=== PATIENT | female | born 1940 | race Two or more races ===

== ENCOUNTER 2017-09-09 20:32 | Inpatient (IN) | payer MEDICARE, OTHER ==
[~2017-09-09] VITALS: Ht 160 cm; Wt 66.9 kg
[2017-09-09] MEDS ORDERED: SODIUM CHLORIDE 0.9% 1,000 ML IV ONE (21:09)
[2017-09-09] MEDS ORDERED: MECLIZINE CHEWABLE 25 MG TAB PO ONE (21:30)
[2017-09-09] MEDS ORDERED: SODIUM CHLORIDE 0.9% 1,000ML IVBOLUS ONE (21:30)
[2017-09-09] MEDS ORDERED: SODIUM CHLORIDE FLUSH 10ML SYR IVF ONE (21:30)
[2017-09-09] MEDS ORDERED: ONDANSETRON 2MG/ML, 2ML IVPush ONE (21:30)
[2017-09-09 21:35] LABS: BASOPHILS # (AUTO) 0.02 x10^3/uL (0-0.1); BASOPHILS % (AUTO) 0 % (0-1); EOSINOPHILS % (AUTO) 0 % (1-7); LYMPHOCYTES # (AUTO) 0.42 x10^3/uL (1-3.4); LYMPHOCYTES % (AUTO) 5 % (22-44); MD NO; MEAN CORPUSCULAR HEMOGLOBIN 31.5 pg (27.0-34.8); MEAN CORPUSCULAR HGB CONC 33.7 g/dL (32.4-35.8); MEAN CORPUSCULAR VOLUME 93.4 fL (80-100); MEAN PLATELET VOLUME 8.2 fL (7.4-10.4); MONOCYTES # (AUTO) 0.17 x10^3/uL (0.2-0.8); MONOCYTES % (AUTO) 2 % (2-9); NEUTROPHILS % (AUTO) 93 % (42-75); PLATELET COUNT 191 x10^3/uL (130-400); RED BLOOD COUNT 5.19 x10^6/uL (3.82-5.3); RED CELL DISTRIBUTION WIDTH 14.4 % (9.6-15.2)
[2017-09-09] MEDS ORDERED: ONDANSETRON 2MG/ML, 2ML ONE (21:36)
[2017-09-09] MEDS ORDERED: MECLIZINE CHEWABLE 25 MG TAB ONE (21:36)
[2017-09-09 21:47] LABS: ALBUMIN 3.3 g/dL (3.4-5.0); ANION GAP 7 mmol/L (5-15); CALCIUM 8.3 mg/dL (8.5-10.1); CHLORIDE 107 mmol/L (98-107)
[2017-09-09 21:53] LABS: ALANINE AMINOTRANSFERASE 19 U/L (12-78); ALKALINE PHOSPHATASE 54 U/L (45-117); BILIRUBIN,TOTAL 0.8 mg/dL (0.2-1.0); CREATININE 0.76 mg/dL (0.55-1.02); TOTAL PROTEIN 7.3 g/dL (6.4-8.2); TROPONIN I < 0.015 ng/mL (0.000-0.045)
[2017-09-09] MEDS ORDERED: IPRATROPIUM 0.5 MG/2.5 ML INHA NPPB ONE (23:00)
[2017-09-09] MEDS ORDERED: ALBUTEROL SULFATE 2.5 MG/3 ML NPPB ONE (23:00)
[2017-09-09] MEDS ORDERED: POTASSIUM CHLORIDE 40 MEQ in SODIUM CHLORIDE 0.9% 500 ML IV ONE (23:00)
[2017-09-09] MEDS ORDERED: methylPREDNISolone SOD SUCC 125 MG/2 ML IVP ONE (23:00)
[2017-09-09] MEDS ORDERED: methylPREDNISolone SOD SUCC 125 MG/2 ML ONE (23:07)
[2017-09-09 23:13] LABS: MICROSCOPIC AUTO
[2017-09-09 23:25] LABS: CULTURE INDICATED? NO
[2017-09-09] MEDS ORDERED: ZOLE4VIA INJ (23:39)
[2017-09-09] MEDS ORDERED: GABA-827 PO (23:39)
[2017-09-09] MEDS ORDERED: TIOT18CA INH (23:39)
[2017-09-09] MEDS ORDERED: HYDR25TA6 PO (23:39)
[2017-09-09] MEDS ORDERED: ALBU8.5H8 INH (23:39)
[2017-09-09] MEDS ORDERED: AMLO10TA2 PO (23:39)
[2017-09-09] MEDS ORDERED: AMIT50TA PO (23:39)
[2017-09-09] MEDS ORDERED: PRAV10TA2 PO (23:39)
[2017-09-10] MEDS ORDERED: POLYETHYLENE GLYCOL 17 GM PACKET PO PRN
[2017-09-10] MEDS ORDERED: MECLIZINE CHEWABLE 25 MG TAB PO PRN
[2017-09-10] MEDS ORDERED: ACETAMINOPHEN 325 MG TABLET PO PRN
[2017-09-10] MEDS ORDERED: DIAZEPAM 5 MG TABLET PO PRN
[2017-09-10] MEDS ORDERED: BISACODYL 10 MG SUPP PR PRN
[2017-09-10] MEDS ORDERED: ONDANSETRON 2MG/ML, 2ML IVPush PRN
[2017-09-10 00:13] VITALS: BP 128/67
[2017-09-10] MEDS ORDERED: ALBUTEROL SULFATE 2.5 MG/3 ML NPPB PRN ×2 (00:30→14:00)
[2017-09-10] MEDS: AMITRIPTYLINE 50 MG TABLET PO SCH ×2 (00:40→20:15)
[2017-09-10] MEDS: PRAVASTATIN 20 MG TABLET PO SCH ×2 (01:08→20:15)
[2017-09-10] MEDS: NS + 20MEQ KCL 1,000 ML IV SCH ×2 (04:26→18:21)
[2017-09-10 05:42] LABS: ANION GAP 6 mmol/L (5-15); CALCIUM 7.3 mg/dL (8.5-10.1); CHLORIDE 111 mmol/L (98-107); CREATININE 0.64 mg/dL (0.55-1.02)
[2017-09-10 06:47] VITALS: BP 90/53
[2017-09-10] MEDS ORDERED: IPRATROPIUM 0.5 MG/2.5 ML INHA NPPB SCH (07:00)
[2017-09-10 07:06] VITALS: BP 96/61
[2017-09-10] MEDS: GABAPENTIN 100 MG CAPSULE PO SCH (08:12)
[2017-09-10] MEDS: SENNA/DOCUSATE TABLET PO SCH (08:15)
[2017-09-10] MEDS: IPRATROPIUM 0.5 MG/2.5 ML INHA NPPB SCH ×3 (09:00→20:08)
[2017-09-10] MEDS ORDERED: AMLODIPINE 5 MG TABLET PO SCH (09:00)
[2017-09-10] MEDS ORDERED: HYDROCHLOROTHIAZIDE 25 MG TABLET PO SCH (09:00)
[2017-09-10] MEDS ORDERED: ZOLEDRONIC ACID 5 MG/100 ML IV SCH (09:00)
[2017-09-10 12:24] VITALS: BP 91/54
[2017-09-10 14:24] LABS: TROPONIN I < 0.015 ng/mL (0.000-0.045)
[2017-09-10 20:13] VITALS: BP 110/61
[2017-09-11 01:04] VITALS: BP 112/66
[2017-09-11] MEDS: ALBUTEROL/IPRATROPIUM 2.5MG/0.5MG, 3 ML NPPB SCH ×2 (06:35→10:10)
[2017-09-11] MEDS ORDERED: MECL-85 PO (07:36)
[2017-09-11 08:54] VITALS: BP 104/54
[2017-09-11] MEDS: SENNA/DOCUSATE TABLET PO SCH (09:00)
[2017-09-11] MEDS: GABAPENTIN 100 MG CAPSULE PO SCH (10:51)
== END 2017-09-11 12:07 | disposition home or self-care (01) | DRG 189 ==
LOC: ED 23:14 → EDIP 23:25 → 4EST 23:58 → DCLOUNGE 09-11 11:42
PROVIDERS: ADMIT Hospitalist; ATTEND Internal Medicine
DX: J96.21 Acute and chronic respiratory failure with hypoxia (principal); E44.1 Mild protein-calorie malnutrition; J44.1 Chronic obstructive pulmonary disease with (acute) exacerbation; H81.10 Benign paroxysmal vertigo, unspecified ear; I95.9 Hypotension, unspecified; I10 Essential (primary) hypertension; E86.0 Dehydration; R00.0 Tachycardia, unspecified; E87.6 Hypokalemia; Z85.43 Personal history of malignant neoplasm of ovary; Z90.49 Acquired absence of other specified parts of digestive tract; Z90.710 Acquired absence of both cervix and uterus; Z87.891 Personal history of nicotine dependence; Z88.6 Allergy status to analgesic agent; Z68.26 Body mass index [BMI] 26.0-26.9, adult
CPT/HCPCS: 36415; 70450; 71045; 80048; 80053; 81001; 83735; 83880; 84484; 85025; 93005; 94640; 96361; 96374; 96375; J2405; J3480; J7613; J7620; J7644; J2930; J7030; J7040